=== PATIENT | female | born 1960 | race Caucasian/White ===

== ENCOUNTER 2020-01-15 10:11 | Emergency (ER) | payer OTHER ==
[2020-01-15 10:40] LABS: CHLORIDE,CL 102 mEq/L (98-106); SODIUM,NA 138 mEq/L (136-145)
--- NOTE | 2020-01-15 10:53 | EDM.PDOC ---
ED HPI GENERAL MEDICAL PROBLEM - General Chief Complaint: ENT Problem Stated Complaint: corner of left eye bleeding Time Seen by Provider: 01/15/20 10:14 Source of Information: Reports: Patient History Limitations: Reports: No Limitations - History of Present Illness INITIAL COMMENTS - FREE TEXT/NARRATIVE: This patient is a 59 year old pleasant female that presents to the ER. Patient reports that she woke this morning with bleeding from her left eye. She denies injury. Denies headache, dizziness, n, v, vision changes. No vision loss, blurry vision. No pain. She reports she was supposed to have eye doctor appointment last week, but cancelled due to work schedule. Onset: Today Duration: Hour(s): (3) Severity: Mild Improves with: Reports: None Worsens with: Reports: None Associated Symptoms: Denies: Confusion, Chest Pain, Cough, cough w sputum, Diaphoresis, Fever/Chills, Headaches, Loss of Appetite, Malaise, Nausea/Vomiting , Rash, Seizure, Shortness of Breath, Syncope, Weakness - Related Data Allergies Allergy/AdvReac Type Severity Reaction Status Date / Time codeine Allergy Anxiety Verified 01/15/20 10:18 Home Meds: Home Meds lisinopriL [Lisinopril] 20 mg PO BEDTIME 01/15/20 [History] Past Medical History - Past Health History Medical/Surgical History: Denies Medical/Surgical History Cardiovascular History: Reports: Hypertension Other Musculoskeletal History: broken arm - Past Surgical History Female Surgical History: Reports: Section Social & Family History - Tobacco Use Smoking Status *Q: Never Smoker ED ROS GENERAL - Review of Systems Review Of Systems: See Below Constitutional: Reports: No Symptoms HEENT: Reports: Contact Lenses (in place), Other (left eye corner bleeding) Respiratory: Reports: No Symptoms Cardiovascular: Reports: No Symptoms Endocrine: Reports: No Symptoms GI/Abdominal: Reports: No Symptoms : Reports: No Symptoms Musculoskeletal: Reports: No Symptoms Skin: Reports: No Symptoms Neurological: Reports: No Symptoms Psychiatric: Reports: No Symptoms Hematologic/Lymphatic: Reports: No Symptoms Immunologic: Reports: No Symptoms ED EXAM GENERAL W FULL EYE - Physical Exam Exam: See Below Exam Limited By: No Limitations General Appearance: Alert, WD/WN, No Apparent Distress Eye Exam: Left Eye: Bleeding (stopped, just to corner of eye left lateral. No clot. ), Bilateral Eye: EOMI, PERRL Visual Acuity (R) 20/: 40 Visual Acuity (L) 20/: 25 With Correction: Yes IOP Measure with (Equipment): Other (not available) Eyelids: Bilateral: Normal Appearance Conjunctiva & Sclera: Left: Subconjuctival Hemorrhage (scant: not active: no clot. ) Cornea Exam: Bilateral: Normal Appearance Extraocular Movements: Bilateral: Intact Pupils: Normal Accommodation Pupillary Size: Bilateral: 4 mm Pupillary Reaction: Bilateral: Brisk Ears: Normal External Exam, Normal Canal, Hearing Grossly Normal, Normal TMs Nose: Normal Inspection, Normal Mucosa, No Blood Throat/Mouth: Normal Inspection, Normal Lips, Normal Teeth, Normal Gums, Normal Oropharynx, Normal Voice, No Airway Compromise Head: Atraumatic, Normocephalic Neck: Normal Inspection, Supple, Non-Tender, Full Range of Motion Respiratory/Chest: No Respiratory Distress, Lungs Clear, Normal Breath Sounds, No Accessory Muscle Use Cardiovascular: Normal Peripheral Pulses, Regular Rate, Rhythm, No Edema, No Gallop, No JVD, No Murmur, No Rub GI/Abdominal: Soft, Non-Tender Back Exam: Normal Inspection Extremities: Normal Inspection, Normal Range of Motion, Non-Tender, No Pedal Edema, Normal Capillary Refill Neurological: Alert, Oriented Psychiatric: Normal Affect, Normal Mood Skin Exam: Warm, Dry, Intact, Normal Color, No Rash Lymphatic: No Adenopathy Course - Vital Signs Last Recorded V/S: Last Vital Signs Temp 96.7 F L 01/15/20 10:12 Pulse 69 01/15/20 10:12 Resp 20 01/15/20 10:12 BP 146/61 H 01/15/20 10:12 Pulse Ox 98 01/15/20 10:12 - Orders/Labs/Meds Labs: Laboratory Tests 01/15/20 01/15/20 01/15/20 Range/Units 10:22 10:22 10:22 WBC 4.7 L (5.0-10.0) 10^3/uL RBC 4.28 (4.00-5.50) 10^6/uL Hgb 13.0 (12.0-16.0) g/dL Hct 38.3 (37.0-47.0) % MCV 89.5 (82.0-94.0) fL MCH 30.4 (27.0-32.0) pg MCHC 33.9 (33.0-38.0) g/dL RDW Coeff of Gloria 12.6 (11.0-15.0) % Plt Count 270 (150-400) 10^3/uL Neut % (Auto) 46.5 (35-85) % Lymph % (Auto) 37.0 (10-55) % Simpson % (Auto) 11.0 (0-16) % Eos % (Auto) 4.9 (0-5) % Baso % (Auto) 0.6 (0-3) % Neut # (Auto) 2.20 (1.80-7.00) 10^3/uL Lymph # (Auto) 1.75 (1.00-4.80) 10^3/uL Simpson # (Auto) 0.52 (0.00-0.80) 10^3/uL Eos # (Auto) 0.23 (0.00-0.45) 10^3/uL Baso # (Auto) 0.03 10^3/uL PT 9.8 (9.7-12.3) SEC INR 0.97 (0.92-1.18) Sodium 138 (136-145) mEq/L Potassium 4.0 (3.5-5.0) mEq/L Chloride 102 (98-106) mEq/L Carbon Dioxide 26 (21-32) mmol/L BUN 18 D (7-18) mg/dL Creatinine 0.9 (0.6-1.0) mg/dL Est Cr Clr Drug Dosing 54.30 mL/min Estimated GFR (MDRD) > 60 (>=60) mL/min Glucose 108 H (75-99) mg/dL Calcium 8.8 (8.4-10.1) mg/dL Departure - Departure Time of Disposition: 10:52 Disposition: Home, Self-Care 01 Condition: Good Clinical Impression: Hyphema of left eye - Discharge Information *PRESCRIPTION DRUG MONITORING PROGRAM REVIEWED*: Not Applicable *COPY OF PRESCRIPTION DRUG MONITORING REPORT IN PATIENT ROBY: Not Applicable Instructions: Hyphema Forms: ED Department Discharge Additional Instructions: Followup with market development specialist by calling Friday for appointment Followup with your primary care provider Return to the ER for worsening of condition or any emergent concerns such as vision loss Avoid using contacts until eye doctor gives the okay: wear glasses Sepsis Event Note - Evaluation Sepsis Screening Result: No Definite Risk - Focused Exam Vital Signs: Vital Signs Temp Pulse Resp BP Pulse Ox 01/15/20 10:12 96.7 F L 69 20 146/61 H 98 Date Exam was Performed: 01/15/20 Time Exam was Performed: 10:54 - Assessment/Plan Plan: PLEASE SEE RN NOTE FOR PFSH.
== END 2020-01-15 11:02 | disposition home or self-care (01) ==
LOC: CC.ED 10:11
DX: H21.02 Hyphema, left eye (principal); H11.32 Conjunctival hemorrhage, left eye; I10 Essential (primary) hypertension; Z88.5 Allergy status to narcotic agent
CPT/HCPCS: 36415; 80048; 85025; 85610; 99283

== ENCOUNTER 2025-02-11 20:19 | Emergency (ER) | payer MEDICARE ==
[2025-02-11 21:50] LABS: APPEARANCE,URINE CLEAR (CLEAR); GLUCOSE,URINE NEGATIVE (NEGATIVE); OCCULT BLOOD,URINE TRACE-INTACT (NEGATIVE)
[2025-02-11 21:54] LABS: BASOPHILS ABSOLUTE AUTO 0.04 10^3/uL (0.00-0.50); BASOPHILS PERCENT AUTO 0.7 % (0-1); EOSINOPHILS ABSOLUTE AUTO 0.20 10^3/uL (0.00-1.50); EOSINOPHILS PERCENT AUTO 3.3 % (0-6); IMMATURE GRAN ABSOLUTE AUTO 0.01 10^3/uL (0.00-0.49); IMMATURE GRAN PERCENT AUTO 0.2 % (0.0-4.9); LYMPHOCYTES ABSOLUTE AUTO 2.21 10^3/uL (0.60-5.00); LYMPHOCYTES PERCENT AUTO 36.7 % (24-44); MONOCYTES ABSOLUTE AUTO 0.57 10^3/uL (0.00-1.50); MONOCYTES PERCENT AUTO 9.5 % (0-10); NEUTROPHILS ABSOLUTE AUTO 3.00 x10^3/uL (1.80-8.00); NEUTROPHILS PERCENT AUTO 49.6 % (41-71); PLATELET COUNT,PLT 268 10^3/uL (150-400); RED BLOOD CELL COUNT 4.27 x10^6/uL (4.00-5.50); WHITE BLOOD CELL COUNT,WBC 6.0 10^3/uL (4.0-11.0)
[2025-02-11 21:59] LABS: EPITHELIAL CELLS,URINE FEW /HPF (NOT SEEN)
[2025-02-11 22:08] LABS: ALANINE AMINOTRANSFERASE,ALT 40 U/L (12-78); ASPARTATE AMNIOTRANSFERASE,AST 23 U/L (15-37); BILIRUBIN TOTAL 0.3 mg/dL (0.0-1.0); BLOOD UREA NITROGEN,BUN 20 mg/dL (7-18); CARBON DIOXIDE,CO2 25 mmol/L (21-32); CHLORIDE,CL 104 mEq/L (98-106); CREATININE 0.9 mg/dL (0.6-1.0); EST CRCL DRUG DOSING (CG) 50.86 mL/min; ESTIMATED GFR 71 mL/min (>=60); GLUCOSE RANDOM 112 mg/dL (75-99); POTASSIUM,K 4.2 mEq/L (3.5-5.0); PROTEIN TOTAL,TP 7.2 g/dL (6.4-8.2); SODIUM,NA 141 mEq/L (136-145)
== END 2025-02-11 23:11 | disposition home or self-care (01) ==
LOC: CC.ED 20:19
DX: I10 Essential (primary) hypertension (principal); Z88.8 Allergy status to other drugs, medicaments and biological substances; Z79.899 Other long term (current) drug therapy
CPT/HCPCS: 36415; 70450; 80053; 81001; 83735; 84484; 85025; 93005; 99284; A9270-GY